=== PATIENT | female | born 1950 | race Caucasian/White ===

== ENCOUNTER 2017-06-02 18:50 | Inpatient (IN) | payer MEDICARE, OTHER, SELFPAY ==
--- NOTE | 2017-06-02 19:00 | NURSING ---
Pt arrived from [facility] via family at [id number]
[2017-06-02 19:25] VITALS: BP 139/79; PULSE 88; RESP 20; TEMP 36.8; O2SAT 98; BMI 25.0
--- NOTE | 2017-06-02 20:52 | PCM.HP.STD ---
Problem List (1) Fever Status: Acute (2) Neutropenia Status: Acute (3) DVT (deep venous thrombosis) Status: Chronic (4) Hypothyroidism Status: Chronic (5) Glioblastoma multiforme Status: Chronic (6) Nausea Status: Chronic (7) Neuropathic pain Status: Chronic (8) GERD (gastroesophageal reflux disease) Status: Chronic (9) Debility Status: Acute (10) Left hemiplegia Status: Chronic History of Present Illness Date of Admission: 06/02/17 Chief Complaint: Here for rehabiliation, strengthening, prior to discharge home with spouse. The patient is a 67 year old Female with below past medical history significant for glioblastoma multiforme status post craniotomy with resection, hospitalized 05/27/2017 at [facility] for fever, neutropenia. Patient had low grade fever, low WBC count, she was initially treated with Levaquin, then presented to [facility] Emergency Department, pancultured, and admitted on IV Zosyn. She was given filgrastim 05/30/2017. She has significant overall weakness, and left hemiparesis which is chronic. All cultures were negative, and her Zosyn was discontinued. Resident understands there are no future options for treatment of GBM, she accepts this, and would like to get stronger to go home and rest. 06/02/2017 Admit to TCU for rehabilitation, strengthening, prior to disposition determination. Past Medical History Past Medical History (Chronic Problems): Chronic Problems DVT (deep venous thrombosis) (Chronic) Left hemiplegia (Chronic) Hypothyroidism (Chronic) Glioblastoma multiforme (Chronic) Nausea (Chronic) Neuropathic pain (Chronic) GERD (gastroesophageal reflux disease) (Chronic) Hypothyroidism associated with surgical procedure (Chronic) Allergies adhesive tape Allergy (Verified 06/02/17 20:37) Hives celecoxib [From Celebrex] Allergy (Verified 08/25/16 19:11) Unknown etodolac [From Lodine] Allergy (Verified 08/25/16 19:12) Unknown vancomycin Allergy (Verified 06/02/17 20:37) Rash Home Medications: Ambulatory Orders Medication Instructions Recorded Multivitamin [Daily Multiple 1 each PO DAILY@0800 11/25/16 Vitamin] Acetaminophen [Tylenol Tablet] 1,000 mg PO Q8H PRN PRN 06/02/17 Dexamethasone 1 mg PO TID 06/02/17 Levetiracetam [Keppra] 1,000 mg PO BID 06/02/17 Levothyroxine [Synthroid] 125 mcg PO DAILY@0600 06/02/17 Surgical History: - - Thyroidectomy 2016 for thyroid cancer, Craniotomy for resection of a glioblastoma multiforme. 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 Lives: Spouse/ Significant Other Smoking Status: Never smoker Tobacco Use: Non-smoker Alcohol: None Drugs: None - *Family History Maternal History Items: DVT VTE Information - Inpt Only VTE Present on Admission: No VTE Mechan Device Prophylaxis: Knee High AB Hose VTE Pharm Prophylaxis ordered?: Yes Patient Problems: Active and Suspected Problems Fever (Acute) Neutropenia (Acute) - Physical Exam General: Alert, Oriented x3, Cooperative HEENT: Atraumatic, PERRLA, EOMI, Normocephalic Neck: Supple, No JVD, Negative Carotid Bruits Lungs: Clear to auscultation, Normal air movement Cardiovascular: Regular rate, No murmurs Abdomen: Bowel Sounds Present, Soft, Non Tender Extremities: No edema, Capillary Refill Less than 3 Seconds Skin: No rashes, No breakdown Musculoskeletal: No Tenderness to Palpation of Joints or Extremities Neurological: Cranial nerves II-XII grossly intact, - - Left hemiparesis. Psych/Mental Status: Normal Affect, Appropriate Vital Signs Temp Pulse Resp BP Pulse Ox 98.2 F 88 20 H 139/79 H 98 06/02/17 19:25 06/02/17 19:25 06/02/17 19:25 06/02/17 19:25 06/02/17 19:25 Oxygen Delivery Method Room Air Weight: 74.531 kg Body Mass Index (BMI) 25.0 Assessment/Plan Active and Suspected Problems Fever (Acute) Neutropenia (Acute) 67 year old female with below past medical history significant for glioblastoma multiforme status post resection, hospitalized for fever, neutropenia, admitted to TCU with debility, here for rehabilitation, strengthening, prior to discharge home with spouse. Debility - PT/OT. Pain - Tylenol 1000MG Q8H PRN mild pain. Bowel - Miralax 17GM daily, Dulcolax 10MG PO daily PRN. Pneumonia vaccination - Administer Prevnar 13 and/or Pneumovax 23 as necessary. DVT prophylaxis - Lovenox 40MG SC daily. GBM - Decadron 1MG TID. Seizure disorder - Keppra 1000MG BID. Hypothyroidism - Levothyroxine 125MCG daily. Nutrition - MVI daily. End of Life - Consider hospice referral when resident/family ready.
--- NOTE | 2017-06-02 21:02 | HP.PCM_ITS ---
Problem List (1) Fever Status: Acute (2) Neutropenia Status: Acute (3) DVT (deep venous thrombosis) Status: Chronic (4) Hypothyroidism Status: Chronic (5) Glioblastoma multiforme Status: Chronic (6) Nausea Status: Chronic (7) Neuropathic pain Status: Chronic (8) GERD (gastroesophageal reflux disease) Status: Chronic (9) Debility Status: Acute (10) Left hemiplegia Status: Chronic History of Present Illness Date of Admission: 06/02/17 Chief Complaint: Here for rehabiliation, strengthening, prior to discharge home with spouse. The patient is a 67 year old Female with below past medical history significant for glioblastoma multiforme status post craniotomy with resection, hospitalized 05/27/2017 at [facility] for fever, neutropenia. Patient had low grade fever, low WBC count, she was initially treated with Levaquin, then presented to [facility] Emergency Department, pancultured, and admitted on IV Zosyn. She was given filgrastim 05/30/2017. She has significant overall weakness, and left hemiparesis which is chronic. All cultures were negative, and her Zosyn was discontinued. Resident understands there are no future options for treatment of GBM, she accepts this, and would like to get stronger to go home and rest. 06/02/2017 Admit to TCU for rehabilitation, strengthening, prior to disposition determination. Past Medical History Past Medical History (Chronic Problems): Chronic Problems DVT (deep venous thrombosis) (Chronic) Left hemiplegia (Chronic) Hypothyroidism (Chronic) Glioblastoma multiforme (Chronic) Nausea (Chronic) Neuropathic pain (Chronic) GERD (gastroesophageal reflux disease) (Chronic) Hypothyroidism associated with surgical procedure (Chronic) Allergies adhesive tape Allergy (Verified 06/02/17 20:37) Hives celecoxib [From Celebrex] Allergy (Verified 08/25/16 19:11) Unknown etodolac [From Lodine] Allergy (Verified 08/25/16 19:12) Unknown vancomycin Allergy (Verified 06/02/17 20:37) Rash Home Medications: Ambulatory Orders Medication Instructions Recorded Multivitamin [Daily Multiple 1 each PO DAILY@0800 11/25/16 Vitamin] Acetaminophen [Tylenol Tablet] 1,000 mg PO Q8H PRN PRN 06/02/17 Dexamethasone 1 mg PO TID 06/02/17 Levetiracetam [Keppra] 1,000 mg PO BID 06/02/17 Levothyroxine [Synthroid] 125 mcg PO DAILY@0600 06/02/17 Surgical History: - - Thyroidectomy 2016 for thyroid cancer, Craniotomy for resection of a glioblastoma multiforme. 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 Lives: Spouse/ Significant Other Smoking Status: Never smoker Tobacco Use: Non-smoker Alcohol: None Drugs: None - *Family History Maternal History Items: DVT VTE Information - Inpt Only VTE Present on Admission: No VTE Mechan Device Prophylaxis: Knee High AB Hose VTE Pharm Prophylaxis ordered?: Yes Patient Problems: Active and Suspected Problems Fever (Acute) Neutropenia (Acute) - Physical Exam General: Alert, Oriented x3, Cooperative HEENT: Atraumatic, PERRLA, EOMI, Normocephalic Neck: Supple, No JVD, Negative Carotid Bruits Lungs: Clear to auscultation, Normal air movement Cardiovascular: Regular rate, No murmurs Abdomen: Bowel Sounds Present, Soft, Non Tender Extremities: No edema, Capillary Refill Less than 3 Seconds Skin: No rashes, No breakdown Musculoskeletal: No Tenderness to Palpation of Joints or Extremities Neurological: Cranial nerves II-XII grossly intact, - - Left hemiparesis. Psych/Mental Status: Normal Affect, Appropriate Vital Signs Temp Pulse Resp BP Pulse Ox 98.2 F 88 20 H 139/79 H 98 06/02/17 19:25 06/02/17 19:25 06/02/17 19:25 06/02/17 19:25 06/02/17 19:25 Oxygen Delivery Method Room Air Weight: 74.531 kg Body Mass Index (BMI) 25.0 Assessment/Plan Active and Suspected Problems Fever (Acute) Neutropenia (Acute) 67 year old female with below past medical history significant for glioblastoma multiforme status post resection, hospitalized for fever, neutropenia, admitted to TCU with debility, here for rehabilitation, strengthening, prior to discharge home with spouse. * Debility - PT/OT. * Pain - Tylenol 1000MG Q8H PRN mild pain. * Bowel - Miralax 17GM daily, Dulcolax 10MG PO daily PRN. * Pneumonia vaccination - Administer Prevnar 13 and/or Pneumovax 23 as necessary. * DVT prophylaxis - Lovenox 40MG SC daily. * GBM - Decadron 1MG TID. * Seizure disorder - Keppra 1000MG BID. * Hypothyroidism - Levothyroxine 125MCG daily. * Nutrition - MVI daily. * End of Life - Consider hospice referral when resident/family ready.
[2017-06-02] MEDS: levETIRAcetam 1,000 MG Tablet 1000 MG PO (21:30)
[2017-06-03] MEDS: Acetaminophen 500 MG Tablet 1000 MG PO (04:29)
[2017-06-03] MEDS: levETIRAcetam 1,000 MG Tablet 1000 MG PO ×2 (04:30→17:11)
[2017-06-03] MEDS: Levothyroxine 125 MCG Tablet PO (04:31)
[2017-06-03 06:06] LABS: Anion Gap 9 (5-15); BUN 28 mg/dL (7-18); BUN/Creat Ratio 39.2 RATIO (10-20); Calcium,Total 8.9 mg/dL (8.5-10.1); Chloride 106 mmol/L (98-107); Creatinine, Serum 0.71 mg/dL (0.55-1.02); EST Glomerular Filtration Rate 86 mL/min (>60); Est Glom Filt Rate - Afr Amer 104 mL/min (>60); Estimated Creatinine Clearance 53.56 ml/min; Glucose 94 mg/dL (74-106); Potassium 3.7 mmol/L (3.5-5.1); Sodium Level 141 mmol/L (136-145)
[2017-06-03 06:10] LABS: Differential Indicated MANUAL DIFF; Hemoglobin 10.1 g/dl (12.0-15.0); Mean Corp Hgb Conc 32.6 g/gl (32-36); Mean Corpuscular Hgb 30.1 pg (27.0-32.0); Mean Corpuscular Volume 92.3 fL (81-99); Mean Platelet Vol. 10.2 fl (6.2-12.0); POSITIVE COUNT YES; POSITIVE DIFFERENTIAL NO; POSITIVE MORPHOLOGY YES; Platelet Count 122 K/mm3 (150-450); RBC Distribution Width CV 20.3 % (11.6-14.6); Red Blood Count 3.36 M/mm3 (4.2-5.4); White Blood Count 6.5 K/mm3 (4.4-11.0)
[2017-06-03 06:39] LABS: Lymphocyte 24 % (19-41); Metamyelocyte 6 % (0-1); Monocyte 15 % (0-10); Myelocyte 1 (0-0); Neutrophil-Band 16 % (0-5); Neutrophil-Segmented 38 % (47-70); Nucleated Red Bld Cells,Manual 1 % (0-5); Total Cells Counted 100 (MANUAL DIFF)
[2017-06-03 06:41] LABS: Absolute Lymphocyte Count 1.56 X10^3/ul (0.83-4.51); Lymphocyte # 1.56 X10^3/ul (4.0); Neutrophil # 3.97 X10^3/uL (2.7-7.7)
[2017-06-03 06:42] LABS: Anisocytosis RARE; Polychromasia RARE
[2017-06-03] MEDS: Enoxaparin 40 MG/0.4 ML Syringe SC (07:25)
[2017-06-03] MEDS: Multivitamins,Therapeutic Tablet 1 TABLET PO (08:11)
[2017-06-03] MEDS: Tuberculin,Purif.prot.deriv. 50 TU/ML Vial 5 ML ID (10:38)
[2017-06-03 13:44] LABS: Pathologist Review Reviewed
[2017-06-03 15:21] VITALS: BP 142/84; PULSE 86; RESP 18; TEMP 36.4; O2SAT 97
[2017-06-03 22:00] VITALS: PULSE 74; RESP 16; O2SAT 96
[2017-06-04] MEDS: levETIRAcetam 1,000 MG Tablet 1000 MG PO ×2 (05:49→16:59)
[2017-06-04] MEDS: Enoxaparin 40 MG/0.4 ML Syringe SC (05:50)
[2017-06-04] MEDS: Levothyroxine 125 MCG Tablet PO (05:50)
[2017-06-04] MEDS: Multivitamins,Therapeutic Tablet 1 TABLET PO (07:48)
[2017-06-04 09:50] VITALS: PULSE 88; RESP 18; O2SAT 96
[2017-06-04] MEDS: Acetaminophen 500 MG Tablet 1000 MG PO (13:27)
[2017-06-04 15:26] VITALS: BP 124/74; PULSE 101; RESP 18; TEMP 36.1; O2SAT 96
[2017-06-05] MEDS: Acetaminophen 500 MG Tablet 1000 MG PO (02:37)
[2017-06-05] MEDS: Enoxaparin 40 MG/0.4 ML Syringe SC (06:16)
[2017-06-05] MEDS: Levothyroxine 125 MCG Tablet PO (06:16)
[2017-06-05] MEDS: levETIRAcetam 1,000 MG Tablet 1000 MG PO ×2 (06:17→17:12)
[2017-06-05] MEDS: Multivitamins,Therapeutic Tablet 1 TABLET PO (07:31)
[2017-06-05 09:18] VITALS: PULSE 80; RESP 18; O2SAT 98
--- NOTE | 2017-06-05 15:41 | PCA ---
Patient/Patients family asked to play cards in the lobby, i went into room to get patient to walk out in the dining room and patient along with family refused to use a device (walker/yonatan-walker) for walking assistance BERRY vincent notified
[2017-06-06] MEDS: Levothyroxine 125 MCG Tablet PO (05:52)
[2017-06-06] MEDS: Enoxaparin 40 MG/0.4 ML Syringe SC (05:53)
[2017-06-06] MEDS: levETIRAcetam 1,000 MG Tablet 1000 MG PO ×2 (05:54→17:39)
[2017-06-06] MEDS: Multivitamins,Therapeutic Tablet 1 TABLET PO (07:39)
[2017-06-06 09:30] VITALS: PULSE 90; RESP 16; O2SAT 96
--- NOTE | 2017-06-06 14:59 | PCM.PN.RX ---
<Kj Mendezip D - Last Filed: 06/06/17 14:59> Progress Note - Pharmacy Subjective: TCU Admission Objective: Allergies adhesive tape Allergy (Verified 06/02/17 20:37) Hives celecoxib [From Celebrex] Allergy (Verified 08/25/16 19:11) Unknown etodolac [From Lodine] Allergy (Verified 08/25/16 19:12) Unknown vancomycin Allergy (Verified 06/02/17 20:37) Rash Home Medications Medication Instructions Recorded Multivitamin [Daily Multiple 1 each PO DAILY@0800 11/25/16 Vitamin] Acetaminophen [Tylenol Tablet] 1,000 mg PO Q8H PRN PRN 06/02/17 Dexamethasone 1 mg PO TID 06/02/17 Levetiracetam [Keppra] 1,000 mg PO BID 06/02/17 Levothyroxine [Synthroid] 125 mcg PO DAILY@0600 06/02/17 Current Medications Generic Name Dose Route Start Last Admin Trade Name Freq PRN Reason Stop Dose Admin Acetaminophen 1,000 mg 06/02/17 21:03 06/05/17 02:37 Tylenol PO 1,000 mg Q8H PRN PRN Administration MILD PAIN (1-3/10) Bisacodyl 10 mg 06/02/17 21:03 Dulcolax PO DAILY PRN Constipation Dexamethasone 1 mg 06/03/17 07:45 06/06/17 11:52 Decadron PO 06/16/17 22:01 1 mg TIDCM ISABEL Administration Enoxaparin Sodium 40 mg 06/03/17 06:00 06/06/17 05:53 Lovenox SC 40 mg DAILY@0600 ON LICENSE OF [facility] Administration Levetiracetam 1,000 mg 06/02/17 22:00 06/06/17 05:54 Keppra PO 1,000 mg BID ON LICENSE OF [facility] Administration Levothyroxine Sodium 125 mcg 06/03/17 06:00 06/06/17 05:52 Synthroid PO 125 mcg DAILY@0600 ON LICENSE OF [facility] Administration Multivitamins 1 tablet 06/03/17 08:00 06/06/17 07:39 Multivitamin PO 1 tablet DAILY@0800 ON LICENSE OF [facility] Administration Polyethylene Glycol 17 gm 06/03/17 06:00 06/06/17 05:54 Miralax PO Not Given DAILY ON LICENSE OF [facility] Tuberculin PPD 5 tu 06/10/17 10:00 Tubersol, Aplisol, Ppd ID 06/10/17 10:01 X1 ONE Problem List Fever (Acute) Neutropenia (Acute) DVT (deep venous thrombosis) (Chronic) Left hemiplegia (Chronic) Vital Signs Temp Pulse Resp BP Pulse Ox 96.9 F L 90 16 124/74 H 96 06/04/17 15:26 06/06/17 09:30 06/06/17 09:30 06/04/17 15:26 06/06/17 09:30 Oxygen Delivery Method Room Air Weight: 74.531 kg Body Mass Index (BMI) 25.0 Sodium 141 mmol/L (136-145) 06/03/17 05:00 Potassium 3.7 mmol/L (3.5-5.1) 06/03/17 05:00 Chloride 106 mmol/L (98-107) 06/03/17 05:00 Carbon Dioxide 26.0 mmol/L (21.0-32.0) 06/03/17 05:00 Anion Gap 9 (5-15) 06/03/17 05:00 BUN 28 mg/dL (7-18) H 06/03/17 05:00 Creatinine 0.71 mg/dL (0.55-1.02) 06/03/17 05:00 Est GFR (MDRD) Af Amer 104 mL/min (>60) 06/03/17 05:00 Est GFR (MDRD) Non-Af 86 mL/min (>60) 06/03/17 05:00 BUN/Creatinine Ratio 39.2 RATIO (10-20) H 06/03/17 05:00 Glucose 94 mg/dL (74-106) 06/03/17 05:00 Assessment/Plan: 1) Pain APAP for mild pain. Continue to monitor prn medication use, daily pain scores. 2) GBM Dexamethasone 3x daily. Continue to monitor clinically. 3) Seizure Levetiracetam twice daily. Continue to monitor for seizures. 4) Hypothyroidism Levothyroxine daily. Continue to monitor s/s hyper/hypothyroidism. 5) Nutrition Multivitamin daily. Continue to monitor clinically. 6) DVT PPx Enoxaparin daily. Continue to monitor s/s bleeding/clot. Psychotropic Medications: None Unnecessary Medications: None Bowel Regimen: 7) PEG daily, prn bisacodyl. Continue to monitor prn medication use, for constipation/diarrhea. Date of Note:: 06/06/17 - Provider Comments Provider responsibility: Provider responsible to enter orders to implement recommendations <Triston Ramírez Chi - Last Filed: 06/06/17 16:33> Progress Note - Pharmacy Subjective: [] Objective: Allergies adhesive tape Allergy (Verified 06/02/17 20:37) Hives celecoxib [From Celebrex] Allergy (Verified 08/25/16 19:11) Unknown etodolac [From Lodine] Allergy (Verified 08/25/16 19:12) Unknown vancomycin Allergy (Verified 06/02/17 20:37) Rash Home Medications Medication Instructions Recorded Multivitamin [Daily Multiple 1 each PO DAILY@0800 11/25/16 Vitamin] Acetaminophen [Tylenol Tablet] 1,000 mg PO Q8H PRN PRN 06/02/17 Dexamethasone 1 mg PO TID 06/02/17 Levetiracetam [Keppra] 1,000 mg PO BID 06/02/17 Levothyroxine [Synthroid] 125 mcg PO DAILY@0600 06/02/17 Current Medications Generic Name Dose Route Start Last Admin Trade Name Freq PRN Reason Stop Dose Admin Acetaminophen 1,000 mg 06/02/17 21:03 06/05/17 02:37 Tylenol PO 1,000 mg Q8H PRN PRN Administration MILD PAIN (1-3/10) Bisacodyl 10 mg 06/02/17 21:03 Dulcolax PO DAILY PRN Constipation Dexamethasone 1 mg 06/03/17 07:45 06/06/17 11:52 Decadron PO 06/16/17 22:01 1 mg TIDCM ISABEL Administration Enoxaparin Sodium 40 mg 06/03/17 06:00 06/06/17 05:53 Lovenox SC 40 mg DAILY@0600 ISABEL Administration Levetiracetam 1,000 mg 06/02/17 22:00 06/06/17 05:54 Keppra PO 1,000 mg BID ISABEL Administration Levothyroxine Sodium 125 mcg 06/03/17 06:00 06/06/17 05:52 Synthroid PO 125 mcg DAILY@0600 ISABEL Administration Multivitamins 1 tablet 06/03/17 08:00 06/06/17 07:39 Multivitamin PO 1 tablet DAILY@0800 ISABEL Administration Polyethylene Glycol 17 gm 06/03/17 06:00 06/06/17 05:54 Miralax PO Not Given DAILY ISABEL Tuberculin PPD 5 tu 06/10/17 10:00 Tubersol, Aplisol, Ppd ID 06/10/17 10:01 X1 ONE Problem List Fever (Acute) Neutropenia (Acute) DVT (deep venous thrombosis) (Chronic) Left hemiplegia (Chronic) Vital Signs Temp Pulse Resp BP Pulse Ox 96.9 F L 90 16 124/74 H 96 06/04/17 15:26 06/06/17 09:30 06/06/17 09:30 06/04/17 15:26 06/06/17 09:30 Oxygen Delivery Method Room Air Weight: 74.531 kg Body Mass Index (BMI) 25.0 Sodium 141 mmol/L (136-145) 06/03/17 05:00 Potassium 3.7 mmol/L (3.5-5.1) 06/03/17 05:00 Chloride 106 mmol/L (98-107) 06/03/17 05:00 Carbon Dioxide 26.0 mmol/L (21.0-32.0) 06/03/17 05:00 Anion Gap 9 (5-15) 06/03/17 05:00 BUN 28 mg/dL (7-18) H 06/03/17 05:00 Creatinine 0.71 mg/dL (0.55-1.02) 06/03/17 05:00 Est GFR (MDRD) Af Amer 104 mL/min (>60) 06/03/17 05:00 Est GFR (MDRD) Non-Af 86 mL/min (>60) 06/03/17 05:00 BUN/Creatinine Ratio 39.2 RATIO (10-20) H 06/03/17 05:00 Glucose 94 mg/dL (74-106) 06/03/17 05:00 Assessment/Plan: Psychotropic Medications: Unnecessary Medications: Bowel Regimen: - Provider Comments Provider responsibility: Provider responsible to enter orders to implement recommendations Provider Comments to Recommendations by Pharmacy: Agree
--- NOTE | 2017-06-06 15:03 | PHA.CONS_ITS ---
<Kj Mendezip D - Last Filed: 06/06/17 14:59> Progress Note - Pharmacy Subjective: TCU Admission Objective: Allergies adhesive tape Allergy (Verified 06/02/17 20:37) Hives celecoxib [From Celebrex] Allergy (Verified 08/25/16 19:11) Unknown etodolac [From Lodine] Allergy (Verified 08/25/16 19:12) Unknown vancomycin Allergy (Verified 06/02/17 20:37) Rash Home Medications Medication Instructions Recorded Multivitamin [Daily Multiple 1 each PO DAILY@0800 11/25/16 Vitamin] Acetaminophen [Tylenol Tablet] 1,000 mg PO Q8H PRN PRN 06/02/17 Dexamethasone 1 mg PO TID 06/02/17 Levetiracetam [Keppra] 1,000 mg PO BID 06/02/17 Levothyroxine [Synthroid] 125 mcg PO DAILY@0600 06/02/17 Current Medications Generic Name Dose Route Start Last Admin Trade Name Freq PRN Reason Stop Dose Admin Acetaminophen 1,000 mg 06/02/17 21:03 06/05/17 02:37 Tylenol PO 1,000 mg Q8H PRN PRN Administration MILD PAIN (1-3/10) Bisacodyl 10 mg 06/02/17 21:03 Dulcolax PO DAILY PRN Constipation Dexamethasone 1 mg 06/03/17 07:45 06/06/17 11:52 Decadron PO 06/16/17 22:01 1 mg TIDCM ISABEL Administration Enoxaparin Sodium 40 mg 06/03/17 06:00 06/06/17 05:53 Lovenox SC 40 mg DAILY@0600 [facility] Administration Levetiracetam 1,000 mg 06/02/17 22:00 06/06/17 05:54 Keppra PO 1,000 mg BID [facility] Administration Levothyroxine Sodium 125 mcg 06/03/17 06:00 06/06/17 05:52 Synthroid PO 125 mcg DAILY@0600 [facility] Administration Multivitamins 1 tablet 06/03/17 08:00 06/06/17 07:39 Multivitamin PO 1 tablet DAILY@0800 [facility] Administration Polyethylene Glycol 17 gm 06/03/17 06:00 06/06/17 05:54 Miralax PO Not Given DAILY [facility] Tuberculin PPD 5 tu 06/10/17 10:00 Tubersol, Aplisol, Ppd ID 06/10/17 10:01 X1 ONE Problem List Fever (Acute) Neutropenia (Acute) DVT (deep venous thrombosis) (Chronic) Left hemiplegia (Chronic) Vital Signs Temp Pulse Resp BP Pulse Ox 96.9 F L 90 16 124/74 H 96 06/04/17 15:26 06/06/17 09:30 06/06/17 09:30 06/04/17 15:26 06/06/17 09:30 Oxygen Delivery Method Room Air Weight: 74.531 kg Body Mass Index (BMI) 25.0 Sodium 141 mmol/L (136-145) 06/03/17 05:00 Potassium 3.7 mmol/L (3.5-5.1) 06/03/17 05:00 Chloride 106 mmol/L (98-107) 06/03/17 05:00 Carbon Dioxide 26.0 mmol/L (21.0-32.0) 06/03/17 05:00 Anion Gap 9 (5-15) 06/03/17 05:00 BUN 28 mg/dL (7-18) H 06/03/17 05:00 Creatinine 0.71 mg/dL (0.55-1.02) 06/03/17 05:00 Est GFR (MDRD) Af Amer 104 mL/min (>60) 06/03/17 05:00 Est GFR (MDRD) Non-Af 86 mL/min (>60) 06/03/17 05:00 BUN/Creatinine Ratio 39.2 RATIO (10-20) H 06/03/17 05:00 Glucose 94 mg/dL (74-106) 06/03/17 05:00 Assessment/Plan: 1) Pain APAP for mild pain. Continue to monitor prn medication use, daily pain scores. 2) GBM Dexamethasone 3x daily. Continue to monitor clinically. 3) Seizure Levetiracetam twice daily. Continue to monitor for seizures. 4) Hypothyroidism Levothyroxine daily. Continue to monitor s/s hyper/hypothyroidism. 5) Nutrition Multivitamin daily. Continue to monitor clinically. 6) DVT PPx Enoxaparin daily. Continue to monitor s/s bleeding/clot. Psychotropic Medications: None Unnecessary Medications: None Bowel Regimen: 7) PEG daily, prn bisacodyl. Continue to monitor prn medication use, for constipation/diarrhea. Date of Note:: 06/06/17 - Provider Comments Provider responsibility: Provider responsible to enter orders to implement recommendations <Triston Ramírez Chi - Last Filed: 06/06/17 16:33> Progress Note - Pharmacy Subjective: [] Objective: Allergies adhesive tape Allergy (Verified 06/02/17 20:37) Hives celecoxib [From Celebrex] Allergy (Verified 08/25/16 19:11) Unknown etodolac [From Lodine] Allergy (Verified 08/25/16 19:12) Unknown vancomycin Allergy (Verified 06/02/17 20:37) Rash Home Medications Medication Instructions Recorded Multivitamin [Daily Multiple 1 each PO DAILY@0800 11/25/16 Vitamin] Acetaminophen [Tylenol Tablet] 1,000 mg PO Q8H PRN PRN 06/02/17 Dexamethasone 1 mg PO TID 06/02/17 Levetiracetam [Keppra] 1,000 mg PO BID 06/02/17 Levothyroxine [Synthroid] 125 mcg PO DAILY@0600 06/02/17 Current Medications Generic Name Dose Route Start Last Admin Trade Name Freq PRN Reason Stop Dose Admin Acetaminophen 1,000 mg 06/02/17 21:03 06/05/17 02:37 Tylenol PO 1,000 mg Q8H PRN PRN Administration MILD PAIN (1-3/10) Bisacodyl 10 mg 06/02/17 21:03 Dulcolax PO DAILY PRN Constipation Dexamethasone 1 mg 06/03/17 07:45 06/06/17 11:52 Decadron PO 06/16/17 22:01 1 mg TIDCM ISABEL Administration Enoxaparin Sodium 40 mg 06/03/17 06:00 06/06/17 05:53 Lovenox SC 40 mg DAILY@0600 ISABEL Administration Levetiracetam 1,000 mg 06/02/17 22:00 06/06/17 05:54 Keppra PO 1,000 mg BID ISABEL Administration Levothyroxine Sodium 125 mcg 06/03/17 06:00 06/06/17 05:52 Synthroid PO 125 mcg DAILY@0600 ISABEL Administration Multivitamins 1 tablet 06/03/17 08:00 06/06/17 07:39 Multivitamin PO 1 tablet DAILY@0800 ISABEL Administration Polyethylene Glycol 17 gm 06/03/17 06:00 06/06/17 05:54 Miralax PO Not Given DAILY ISABEL Tuberculin PPD 5 tu 06/10/17 10:00 Tubersol, Aplisol, Ppd ID 06/10/17 10:01 X1 ONE Problem List Fever (Acute) Neutropenia (Acute) DVT (deep venous thrombosis) (Chronic) Left hemiplegia (Chronic) Vital Signs Temp Pulse Resp BP Pulse Ox 96.9 F L 90 16 124/74 H 96 06/04/17 15:26 06/06/17 09:30 06/06/17 09:30 06/04/17 15:26 06/06/17 09:30 Oxygen Delivery Method Room Air Weight: 74.531 kg Body Mass Index (BMI) 25.0 Sodium 141 mmol/L (136-145) 06/03/17 05:00 Potassium 3.7 mmol/L (3.5-5.1) 06/03/17 05:00 Chloride 106 mmol/L (98-107) 06/03/17 05:00 Carbon Dioxide 26.0 mmol/L (21.0-32.0) 06/03/17 05:00 Anion Gap 9 (5-15) 06/03/17 05:00 BUN 28 mg/dL (7-18) H 06/03/17 05:00 Creatinine 0.71 mg/dL (0.55-1.02) 06/03/17 05:00 Est GFR (MDRD) Af Amer 104 mL/min (>60) 06/03/17 05:00 Est GFR (MDRD) Non-Af 86 mL/min (>60) 06/03/17 05:00 BUN/Creatinine Ratio 39.2 RATIO (10-20) H 06/03/17 05:00 Glucose 94 mg/dL (74-106) 06/03/17 05:00 Assessment/Plan: Psychotropic Medications: Unnecessary Medications: Bowel Regimen: - Provider Comments Provider responsibility: Provider responsible to enter orders to implement recommendations Provider Comments to Recommendations by Pharmacy: Agree
[2017-06-07] MEDS: levETIRAcetam 1,000 MG Tablet 1000 MG PO ×2 (04:12→16:50)
[2017-06-07] MEDS: Levothyroxine 125 MCG Tablet PO (04:12)
[2017-06-07] MEDS: Enoxaparin 40 MG/0.4 ML Syringe SC (05:20)
[2017-06-07] MEDS: Acetaminophen 500 MG Tablet 1000 MG PO ×2 (05:54→19:51)
[2017-06-07 06:00] VITALS: RESP 18; O2SAT 95
[2017-06-07] MEDS: Multivitamins,Therapeutic Tablet 1 TABLET PO (07:45)
--- NOTE | 2017-06-07 14:57 | CASEMGMT ---
Brief interview for mental status (BIMS) and resident mood interview (PHQ-9) completed on this day. BIMS score 15. PHQ-9 score 08/05
[2017-06-07 15:30] VITALS: BP 111/67; PULSE 87; RESP 16; TEMP 36.5; O2SAT 95
[2017-06-08] MEDS: levETIRAcetam 1,000 MG Tablet 1000 MG PO ×2 (06:02→16:07)
[2017-06-08] MEDS: Levothyroxine 125 MCG Tablet PO (06:02)
[2017-06-08] MEDS: Enoxaparin 40 MG/0.4 ML Syringe SC (06:02)
[2017-06-08] MEDS: Multivitamins,Therapeutic Tablet 1 TABLET PO (09:15)
[2017-06-08 10:00] VITALS: PULSE 88; RESP 18; O2SAT 94
--- NOTE | 2017-06-08 10:30 | CASEMGMT ---
Plan of care meeting held. Resident present as well as resident spouse. No discharge date set at this time. Resident to continue with further care and treatment on the Transitional Care Unit. Resident plans to discharge home with spouse at time of discharge. Support given. Will continue to follow. Katie MADRIGAL, ASSOCIATE OF SCIENCE IN NURSING
--- NOTE | 2017-06-08 14:24 | NURSING ---
Therapy requesting sling for left arm. Order entered. Dr Ramírez aware.
[2017-06-08 15:32] VITALS: BP 130/74; PULSE 90; RESP 18; TEMP 36.8; O2SAT 95
--- NOTE | 2017-06-08 18:23 | NURSING ---
Addendum entered by Honey Miller 06/08/17 19:34: Pt and family aware of WBC 5.7. Original Note: RN notified of concerns during careplan meeting. Family requesting CBC to assess WBC. Dr Ramírez aware. N.O. entered.
[2017-06-08 19:23] LABS: Hematocrit 35.6 % (37-47); Hemoglobin 11.4 g/dl (12.0-15.0); Mean Corpuscular Hgb 30.3 pg (27.0-32.0); Mean Corpuscular Volume 94.7 fL (81-99); Mean Platelet Vol. 9.5 fl (6.2-12.0); Platelet Count 204 K/mm3 (150-450); RBC Distribution Width CV 23.4 % (11.6-14.6); RBC Distribution Width SD 78.8 fl (35.1-43.9); Red Blood Count 3.76 M/mm3 (4.2-5.4); White Blood Count 5.7 K/mm3 (4.4-11.0)
[2017-06-08 19:24] LABS: Differential Indicated MANUAL DIFF; POSITIVE COUNT YES; POSITIVE DIFFERENTIAL YES; POSITIVE MORPHOLOGY YES
[2017-06-08 20:40] LABS: Lymphocyte 16 % (19-41); Monocyte 1 % (0-10); Neutrophil-Band 5 % (0-5); Neutrophil-Segmented 78 % (47-70); Total Cells Counted 100 (MANUAL DIFF)
[2017-06-08 20:41] LABS: Anisocytosis 1+; Platelet Estimate ADEQUATE (ADEQ); Red Cell Morphology N CHROM NORMAL (NORM C&C)
[2017-06-09] LABS: Absolute Lymphocyte Count 0.91 X10^3/ul (0.83-4.51); Absolute Neutrophil Count 4.7 X10^3/uL (2.0-7.7)
[2017-06-09] MEDS: levETIRAcetam 1,000 MG Tablet 1000 MG PO ×2 (05:34→16:59)
[2017-06-09] MEDS: Enoxaparin 40 MG/0.4 ML Syringe SC (05:34)
[2017-06-09] MEDS: Levothyroxine 125 MCG Tablet PO (05:35)
[2017-06-09] MEDS: Multivitamins,Therapeutic Tablet 1 TABLET PO (07:43)
[2017-06-09 10:00] VITALS: PULSE 86; RESP 18; O2SAT 96
[2017-06-09 13:48] LABS: Pathologist Review Reviewed
[2017-06-09 16:45] VITALS: BP 139/76; PULSE 67; RESP 18; TEMP 36.4; O2SAT 97
[2017-06-10 06:35] LABS: Hematocrit 31.4 % (37-47); Hemoglobin 10.6 g/dl (12.0-15.0); Mean Corp Hgb Conc 33.8 g/gl (32-36); Mean Corpuscular Volume 94.9 fL (81-99); Mean Platelet Vol. 10.1 fl (6.2-12.0); Platelet Count 210 K/mm3 (150-450); RBC Distribution Width SD 76.9 fl (35.1-43.9); Red Blood Count 3.31 M/mm3 (4.2-5.4); White Blood Count 4.2 K/mm3 (4.4-11.0)
[2017-06-10 06:38] LABS: Anion Gap 8 (5-15); BUN 26 mg/dL (7-18); BUN/Creat Ratio 41.2 RATIO (10-20); Calcium,Total 8.9 mg/dL (8.5-10.1); Chloride 106 mmol/L (98-107); Creatinine, Serum 0.63 mg/dL (0.55-1.02); Differential Indicated MANUAL DIFF; EST Glomerular Filtration Rate 99 mL/min (>60); Est Glom Filt Rate - Afr Amer 120 mL/min (>60); Estimated Creatinine Clearance 53.56 ml/min; Glucose 94 mg/dL (74-106); POSITIVE COUNT YES; POSITIVE DIFFERENTIAL NO; POSITIVE MORPHOLOGY YES; Sodium Level 141 mmol/L (136-145)
[2017-06-10 07:06] LABS: Lymphocyte 21 % (19-41); Metamyelocyte 3 % (0-1); Monocyte 8 % (0-10); Neutrophil-Segmented 68 % (47-70); Total Cells Counted 100 (MANUAL DIFF)
[2017-06-10 07:07] LABS: Platelet Estimate ADEQUATE (ADEQ); Red Cell Morphology NORM C+C NORMAL (NORM C&C)
[2017-06-10 07:08] LABS: Absolute Lymphocyte Count 0.88 X10^3/ul (0.83-4.51); Absolute Neutrophil Count 2.9 X10^3/uL (2.0-7.7)
[2017-06-10] MEDS: levETIRAcetam 1,000 MG Tablet 1000 MG PO ×2 (07:13→17:42)
[2017-06-10] MEDS: Levothyroxine 125 MCG Tablet PO (07:14)
[2017-06-10] MEDS: Enoxaparin 40 MG/0.4 ML Syringe SC (07:15)
[2017-06-10] MEDS: Multivitamins,Therapeutic Tablet 1 TABLET PO (07:59)
[2017-06-10 10:00] VITALS: PULSE 86; RESP 16; O2SAT 94
[2017-06-10 12:38] LABS: Pathologist Review Reviewed
[2017-06-10 16:00] VITALS: BP 126/75; PULSE 81; RESP 17; TEMP 35.9; O2SAT 95
[2017-06-11] MEDS: levETIRAcetam 1,000 MG Tablet 1000 MG PO ×2 (06:49→17:48)
[2017-06-11] MEDS: Levothyroxine 125 MCG Tablet PO (06:49)
[2017-06-11] MEDS: Enoxaparin 40 MG/0.4 ML Syringe SC (06:49)
[2017-06-11] MEDS: Multivitamins,Therapeutic Tablet 1 TABLET PO (07:57)
[2017-06-11 15:15] VITALS: BP 106/55; PULSE 82; RESP 18; TEMP 37; O2SAT 94
[2017-06-12] MEDS: levETIRAcetam 1,000 MG Tablet 1000 MG PO ×2 (05:31→17:11)
[2017-06-12] MEDS: Enoxaparin 40 MG/0.4 ML Syringe SC (05:32)
[2017-06-12] MEDS: Levothyroxine 125 MCG Tablet PO (05:32)
[2017-06-12] MEDS: Multivitamins,Therapeutic Tablet 1 TABLET PO (07:52)
[2017-06-12 15:26] VITALS: BP 121/68; PULSE 80; RESP 16; TEMP 36.3; O2SAT 97
[2017-06-12 21:11] VITALS: PULSE 78; RESP 18; O2SAT 95
[2017-06-13 05:00] VITALS: BP 155/98; PULSE 91; RESP 20; O2SAT 99
--- NOTE | 2017-06-13 05:00 | NURSING ---
Addendum entered by Lindsey Pinto 06/13/17 05:30: returned call and updated on pt. Original Note: Addendum entered by Lindsey Pinto 06/13/17 05:17: Called pts , Chriss and left a voicemail. Original Note: Pt was found laying on floor between recliner and bed. Pt stated she was trying to transfer from her recliner to her bed. Pt did not use call light, but moved it from her recliner to her table. Pt A&O X3, vitals were 155/98, HR 91, 99% on room air, resp 20. Pt denies any pain at this time and states she landed on her bottom and did not hit or land on any other body part. Dr. Ramírez aware. Will update family.
[2017-06-13] MEDS: Levothyroxine 125 MCG Tablet PO (05:02)
[2017-06-13] MEDS: Enoxaparin 40 MG/0.4 ML Syringe SC (05:03)
[2017-06-13] MEDS: levETIRAcetam 1,000 MG Tablet 1000 MG PO ×2 (05:03→17:05)
--- NOTE | 2017-06-13 07:24 | NURSING ---
Pt was observed sitting upright on bottom, in room between recliner chair and bed at approx 0500. Told staff she was trying to self transfer from chair into bed. Stated she moved the call light from chair to table, where it was lying, and reached for bed remote on opposite side of bed, overstretching herself and losing balance. Insisted she gently slid down onto floor, landing on bottom, denied any pain or discomfort. ROM normal for pt, no redness/injury noted. RNs on duty aware, all appropriate contacts notified. Pt educated on importance of calling for staff and allowing assistance, to which she voiced understanding. PA and floor mats now present with pt/in room. Pt A&O x 3, usual pleasant self, and very apologetic to staff. Vital signs obtained were WNL for pt. Pt stated she will use call light prior to transfers and will allow staff assistance. Continuing to monitor.
[2017-06-13] MEDS: Multivitamins,Therapeutic Tablet 1 TABLET PO (08:19)
--- NOTE | 2017-06-13 14:06 | MDS.RN ---
Information for the mds was obtained from review of the clinical record, interview of resident, staff, and direct observation of resident's care.
[2017-06-13 15:14] VITALS: BP 114/80; PULSE 78; RESP 18; TEMP 36.3; O2SAT 96
[2017-06-14] MEDS: Levothyroxine 125 MCG Tablet PO (06:05)
[2017-06-14] MEDS: levETIRAcetam 1,000 MG Tablet 1000 MG PO ×2 (06:05→16:59)
[2017-06-14] MEDS: Enoxaparin 40 MG/0.4 ML Syringe SC (06:06)
[2017-06-14] MEDS: Multivitamins,Therapeutic Tablet 1 TABLET PO (07:50)
[2017-06-14 10:00] VITALS: PULSE 91; RESP 18; O2SAT 97
[2017-06-14 15:21] VITALS: BP 109/76; PULSE 80; RESP 18; TEMP 36.6; O2SAT 96
--- NOTE | 2017-06-14 15:56 | CASEMGMT ---
Brief interview for mental status (BIMS) and resident mood interview (PHQ-9) completed on this day. BIMS score 1515. PHQ-9 score 07/05
[2017-06-14] MEDS: Menthol/Lanolin/Calamine/Znox 113 GM Tube 1 APPLIC TOPICAL (19:38)
[2017-06-15] MEDS: Acetaminophen 500 MG Tablet 1000 MG PO (03:05)
[2017-06-15] MEDS: Menthol/Lanolin/Calamine/Znox 113 GM Tube 1 APPLIC TOPICAL ×2 (05:54→20:02)
[2017-06-15] MEDS: Multivitamins,Therapeutic Tablet 1 TABLET PO (05:55)
[2017-06-15] MEDS: Enoxaparin 40 MG/0.4 ML Syringe SC (05:55)
[2017-06-15] MEDS: Levothyroxine 125 MCG Tablet PO (05:55)
[2017-06-15 06:00] VITALS: RESP 16
[2017-06-15] MEDS: levETIRAcetam 1,000 MG Tablet 1000 MG PO ×2 (06:04→18:26)
--- NOTE | 2017-06-15 06:15 | NURSING ---
PATIENT WAS GIVEN EARLY BATH AND ALL 0600 AND 0800 MEDS GIVEN LEFT WITH FOR DR NOLAN IN [place]. DENIED ANY NEED FOR PAIN RX DID TAKE ONE DOSE DURING THE NIGHT WITH EFFECT.
[2017-06-15 10:00] VITALS: PULSE 95; RESP 18; O2SAT 95
--- NOTE | 2017-06-15 12:32 | NURSING ---
PT HAD APPT TODAY IN [facility] EARLY AM AND STAFF CALLED TO REPORT THAT PT GIVEN DEXAMETHSONE 12MG TODAY AND WOULD LIKE HER SCHEDULED DOSE TO BE INCREASED TO 4MG BID.
[2017-06-15 20:08] VITALS: BP 133/80; PULSE 88; RESP 20; TEMP 36.7; O2SAT 97
[2017-06-16] MEDS: levETIRAcetam 1,000 MG Tablet 1000 MG PO ×2 (06:37→16:56)
[2017-06-16] MEDS: Levothyroxine 125 MCG Tablet PO (06:37)
[2017-06-16] MEDS: Enoxaparin 40 MG/0.4 ML Syringe SC (06:37)
[2017-06-16] MEDS: Menthol/Lanolin/Calamine/Znox 113 GM Tube 1 APPLIC TOPICAL ×2 (06:40→20:10)
[2017-06-16] MEDS: Multivitamins,Therapeutic Tablet 1 TABLET PO (08:13)
[2017-06-16 09:57] VITALS: PULSE 96; RESP 16; O2SAT 96
[2017-06-16 15:57] VITALS: BP 116/57; PULSE 76; RESP 18; TEMP 36.2; O2SAT 90
--- NOTE | 2017-06-16 18:11 | NURSING ---
This nurse noticed Pt having a lot of difficulty walking, Pt having more trouble lifting and using right foot, Pt leaning and barley holding self up, maximum assistance was needed by SHOT COAT TENDER. Pt wheeled from bathroom, because SHOT COAT TENDER thought she was unsafe to walk. Robyn SMART updated
--- NOTE | 2017-06-16 18:54 | NURSING ---
1700-smutter having trouble with getting pt to br d/t balance trouble. pt with no new neuro deficit upon assessment. denies any dizziness when up. pt having trouble even with good leg though not obs at this time per this rn. denies any pain or other needs. will monitor
[2017-06-16 20:15] VITALS: TEMP 36.8
[2017-06-17] MEDS: Enoxaparin 40 MG/0.4 ML Syringe SC (05:12)
[2017-06-17] MEDS: Levothyroxine 125 MCG Tablet PO (05:12)
[2017-06-17] MEDS: levETIRAcetam 1,000 MG Tablet 1000 MG PO ×2 (05:12→17:03)
[2017-06-17] MEDS: Menthol/Lanolin/Calamine/Znox 113 GM Tube 1 APPLIC TOPICAL ×2 (05:14→19:35)
[2017-06-17 06:11] LABS: Absolute Lymphocyte Count 0.71 X10^3/ul (0.83-4.51); Absolute Neutrophil Count 3.8 X10^3/uL (2.0-7.7); Basophil# 0.01 X10^3/uL; Basophil% 0.2 % (0-1); Differential Indicated SCAN CRITERIA MET; Hematocrit 34.4 % (37-47); Hemoglobin 11.2 g/dl (12.0-15.0); Lymphocyte # 0.71 X10^3/ul (4.0); Mean Corp Hgb Conc 32.6 g/gl (32-36); Mean Corpuscular Hgb 31.8 pg (27.0-32.0); Mean Corpuscular Volume 97.7 fL (81-99); Mean Platelet Vol. 9.9 fl (6.2-12.0); Monocyte# 0.58 X10^3/uL; Monocyte% 11.4 % (0-10); Neutrophil # 3.76 X10^3/uL (2.7-7.7); POSITIVE COUNT NO; POSITIVE DIFFERENTIAL NO; POSITIVE MORPHOLOGY YES; Platelet Count 253 K/mm3 (150-450); RBC Distribution Width CV 23.1 % (11.6-14.6); Red Blood Count 3.52 M/mm3 (4.2-5.4); White Blood Count 5.1 K/mm3 (4.4-11.0)
[2017-06-17 06:13] LABS: Anion Gap 8 (5-15); BUN 27 mg/dL (7-18); BUN/Creat Ratio 38.5 RATIO (10-20); Calcium,Total 9.1 mg/dL (8.5-10.1); Chloride 107 mmol/L (98-107); EST Glomerular Filtration Rate 88 mL/min (>60); Est Glom Filt Rate - Afr Amer 107 mL/min (>60); Estimated Creatinine Clearance 53.56 ml/min; Glucose 110 mg/dL (74-106); Potassium 4.4 mmol/L (3.5-5.1); Sodium Level 144 mmol/L (136-145)
[2017-06-17 06:40] LABS: Anisocytosis 2+; Differential Comment SCANNED
[2017-06-17] MEDS: Multivitamins,Therapeutic Tablet 1 TABLET PO (07:48)
--- NOTE | 2017-06-17 15:15 | NURSING ---
Dr. Ramírez reviewed labs, NNO, print out given to pt to give to per request
[2017-06-17 15:23] VITALS: BP 108/65; PULSE 78; RESP 18; TEMP 36.5; O2SAT 96
[2017-06-17 19:47] VITALS: PULSE 82; RESP 15
[2017-06-18] MEDS: Levothyroxine 125 MCG Tablet PO (04:47)
[2017-06-18] MEDS: levETIRAcetam 1,000 MG Tablet 1000 MG PO ×2 (04:47→17:25)
[2017-06-18] MEDS: Menthol/Lanolin/Calamine/Znox 113 GM Tube 1 APPLIC TOPICAL ×2 (04:47→19:57)
[2017-06-18] MEDS: Enoxaparin 40 MG/0.4 ML Syringe SC (04:48)
[2017-06-18] MEDS: Multivitamins,Therapeutic Tablet 1 TABLET PO (09:58)
[2017-06-18 10:00] VITALS: PULSE 86; RESP 18; O2SAT 98
--- NOTE | 2017-06-18 14:14 | NURSING ---
Pt c/0 feeling dizzy. Pt very wobbly when being transferred. Vitals T-97.7 P-83 R-18 SP02 93% BP 144/72. Pt not in any pain at this time just states that she isn't feeling well. Deanna SMART aware will continue to monitor Pt. Pt will be a 2 assist per nursing measure until her weakness resides.
[2017-06-19] MEDS: Menthol/Lanolin/Calamine/Znox 113 GM Tube 1 APPLIC TOPICAL ×2 (04:25→19:32)
[2017-06-19] MEDS: Levothyroxine 125 MCG Tablet PO (04:26)
[2017-06-19] MEDS: levETIRAcetam 1,000 MG Tablet 1000 MG PO ×2 (04:26→19:05)
[2017-06-19] MEDS: Enoxaparin 40 MG/0.4 ML Syringe SC (05:19)
[2017-06-19] MEDS: Multivitamins,Therapeutic Tablet 1 TABLET PO (07:34)
--- NOTE | 2017-06-19 19:05 | NURSING ---
RETURNED FROM [facility] WITH FAMILY VIA WHEEL CHAIR. ASSISTED TO RECLINER. NOW WATCHING TV, IN [employer]. ASSESSMENT COMPLETED. NO NEEDS AT THIS TIME, WILL CONT TO MONITOR.
[2017-06-19 19:28] VITALS: BP 135/77; PULSE 79; RESP 16; TEMP 36.5; O2SAT 97
[2017-06-19 19:30] VITALS: PULSE 78; RESP 16; O2SAT 97
[2017-06-20] MEDS: Menthol/Lanolin/Calamine/Znox 113 GM Tube 1 APPLIC TOPICAL ×2 (05:32→21:46)
[2017-06-20] MEDS: levETIRAcetam 1,000 MG Tablet 1000 MG PO ×2 (05:33→17:01)
[2017-06-20] MEDS: Levothyroxine 125 MCG Tablet PO (05:33)
[2017-06-20] MEDS: Enoxaparin 40 MG/0.4 ML Syringe SC (05:33)
[2017-06-20] MEDS: Multivitamins,Therapeutic Tablet 1 TABLET PO (08:38)
[2017-06-20 15:35] VITALS: BP 122/66; PULSE 82; RESP 16; TEMP 36.8; O2SAT 98
[2017-06-21] MEDS: Levothyroxine 125 MCG Tablet PO (06:11)
[2017-06-21] MEDS: Menthol/Lanolin/Calamine/Znox 113 GM Tube 1 APPLIC TOPICAL ×2 (06:11→19:41)
[2017-06-21] MEDS: Enoxaparin 40 MG/0.4 ML Syringe SC (06:11)
[2017-06-21] MEDS: levETIRAcetam 1,000 MG Tablet 1000 MG PO ×2 (06:11→17:36)
[2017-06-21] MEDS: Multivitamins,Therapeutic Tablet 1 TABLET PO (07:45)
[2017-06-21 10:00] VITALS: PULSE 95; RESP 18; O2SAT 98
--- NOTE | 2017-06-21 15:16 | CASEMGMT ---
Brief interview for mental status (BIMS) and resident mood interview (PHQ-9) completed on this day. BIMS score 15. PHQ-9 score 08/05
--- NOTE | 2017-06-21 15:19 | CASEMGMT ---
Social Work Spoke with resident and resident spouse. This social media strategist communicating that discharge date has been set for 06/26/17. Resident and resident spouse are agreeable to discharge date and plans for resident to discharge home with spouse. This social media strategist communicating that current recommendation would be for resident to have continued therapy services for both physical, occupational and speech therapy within the home. Resident and resident spouse are agreeable to recommendation. Support given. Will continue to follow. Proposed discharge date: 06/26/17 PLAN: Discharge home with spouse. Katie MADRIGAL, FLAG DECORATOR
[2017-06-21 15:32] VITALS: BP 116/62; PULSE 82; RESP 18; TEMP 36.4; O2SAT 93
--- NOTE | 2017-06-21 16:56 | PCM.DC ---
- Discharge Diagnoses Current Active Problems: Current Active and Chronic Problems Fever (Acute) Neutropenia (Acute) DVT (deep venous thrombosis) (Chronic) Left hemiplegia (Chronic) You will use the following diet at home:: No restrictions, Regular Your food should be the consistency of: Regular Your liquids should be the consistency of: Regular/Thin Discharge Activity: Return to Normal Activity, Use Walker May resume sexual activity in: No Restrictions Weight Bearing Status: Weight bearing as tolerated Call your doctor if you observe: Fever of 101 or Higher, Inability to urinate, Inability to have a bowel movement, Shortness of breath, Chest pain, Uncontrolled pain Allergies/Adverse Reactions: Allergies adhesive tape Allergy (Verified 06/02/17 20:37) Hives celecoxib [From Celebrex] Allergy (Verified 08/25/16 19:11) Unknown etodolac [From Lodine] Allergy (Verified 08/25/16 19:12) Unknown vancomycin Allergy (Verified 06/02/17 20:37) Rash Medications to take at Discharge Multivitamin [Daily Multiple Vitamin] 1 each PO DAILY@0800 11/25/16 Acetaminophen [Tylenol Tablet] 1,000 mg PO Q8H PRN PRN 06/02/17 Levothyroxine [Synthroid] 125 mcg PO DAILY@0600 06/02/17 Dexamethasone 1 mg PO DAILY #3 06/21/17 Levetiracetam [Keppra] 1,000 mg PO BID #60 tab 06/21/17 Polyethylene Glycol 3350 [Miralax] 17 gm PO DAILY #30 packet 06/21/17 The following prescriptions were given: Polyethylene Glycol 3350 [Miralax] 17 gm PO DAILY #30 packet Levetiracetam [Keppra] 1,000 mg PO BID #60 tab Primary Care Physician: Derek Roldan [Primary Care Provider] - Please follow up with your Primary Care Physician in: 1 week. Proposed Discharge Date: 06/26/17
--- NOTE | 2017-06-21 16:58 | PCM.DC.SUM ---
Discharge Date and Diagnosis - Problem List Patient Problems: Active and Suspected Problems Fever (Acute) Neutropenia (Acute) Date of Admission: 06/02/17 Date of Discharge: 06/26/17 - Primary Discharge Diagnosis Active and Suspected Problems Fever (Acute) Neutropenia (Acute) - Secondary Discharge Diagnosis Chronic Problems DVT (deep venous thrombosis) (Chronic) Left hemiplegia (Chronic) Hypothyroidism (Chronic) Glioblastoma multiforme (Chronic) Nausea (Chronic) Neuropathic pain (Chronic) GERD (gastroesophageal reflux disease) (Chronic) Hypothyroidism associated with surgical procedure (Chronic) Hospital Course and Treatment Imaging Results: 06/06/17 13:04 Diet: Regular Diet Food consistency:: Regular Liquid Consistency:: Regular/Thin Is pt able to select menu?: Yes Diet Comments: NO STRAWS, send cup for mighty shake Operations: None Procedures: None Summary of Care Provided: The patient is a 67 year old Female with below past medical history significant for glioblastoma multiforme status post resection, hospitalized for fever, neutropenia, admitted to TCU with debility, here for rehabilitation, strengthening, prior to discharge home with spouse. [] Discharge home with spouse, and Home health services. Home health ordered. Discharge Diet: No Restrictions Discharge Activity: Return to Normal Activity, Use Walker May resume sexual activity in: No Restrictions Weight Bearing Status: Weight bearing as tolerated Call your doctor if you observe: Fever of 101 or Higher, Inability to urinate, Inability to have a bowel movement, Shortness of breath, Chest pain, Uncontrolled pain Home Medications: Medications to take at Discharge Multivitamin [Daily Multiple Vitamin] 1 each PO DAILY@0800 11/25/16 Acetaminophen [Tylenol Tablet] 1,000 mg PO Q8H PRN PRN 06/02/17 Levothyroxine [Synthroid] 125 mcg PO DAILY@0600 06/02/17 Dexamethasone 1 mg PO DAILY #3 06/21/17 Levetiracetam [Keppra] 1,000 mg PO BID #60 tab 06/21/17 Polyethylene Glycol 3350 [Miralax] 17 gm PO DAILY #30 packet 06/21/17 Following Prescrptions Were Given to Patient: Polyethylene Glycol 3350 [Miralax] 17 gm PO DAILY #30 packet Levetiracetam [Keppra] 1,000 mg PO BID #60 tab Primary Care Physician: Derek Roldan [Primary Care Provider] - Please follow up with your Primary Care Physician in: 1 week. Disposition: Home with Home Health Minutes spent on discharge:: 35 Patient Condition:: Stable Meaningful Use Info Meaningful Use Diagnoses (Choose all that apply): None applicable
--- NOTE | 2017-06-21 16:59 | HHNOTE_ITS ---
Home Health Note - Plan Overview of reason of hospitalization: The patient is a 67 year old Female with below past medical history significant for glioblastoma multiforme status post resection, hospitalized for fever, neutropenia, admitted to TCU with debility, here for rehabilitation, strengthening, prior to discharge home with spouse. [] Discharge home with spouse, and Home health services. Home health ordered. Problems: Patient was seen for Fever (Acute) Neutropenia (Acute) DVT (deep venous thrombosis) (Chronic) Left hemiplegia (Chronic) Complete List of Medical Problems Fever (Acute) Neutropenia (Acute) DVT (deep venous thrombosis) (Chronic) Left hemiplegia (Chronic) Hypothyroidism (Chronic) Thrush (Acute) Glioblastoma multiforme (Chronic) Leukopenia (Acute) Diarrhea (Acute) Brain abscess (Acute) Nausea (Chronic) Neuropathic pain (Chronic) GERD (gastroesophageal reflux disease) (Chronic) Hypothyroidism associated with surgical procedure (Chronic) Debility (Acute) Brain tumor (Acute) - Requirements and Reasons Disciplines Needed/Ordered: Snf, Physical Therapy, Speech Therapy Reason for Disciplines: Gait Training, Stair Training, Fall Prevention, Home Safety/Equipment Instruction, Balance and/or Posture Training, Transfer Training , Swallowing Exercise/Education Related To: Limited/Poor Endurance, Shortness of Breath with Activity, Physical Impairments, Unsteady Gait/Balance, Fall Risk Patient is unable to leave the home: Without Aid of Supportive Devices (crutches , cane, wheelchair, walker), Without the assistance of another person - Additional Disciplines Additional Disciplines Needed/Ordered: Occupational Therapy
[2017-06-22] MEDS: Menthol/Lanolin/Calamine/Znox 113 GM Tube 1 APPLIC TOPICAL ×2 (04:27→19:44)
[2017-06-22] MEDS: levETIRAcetam 1,000 MG Tablet 1000 MG PO ×2 (04:28→16:40)
[2017-06-22] MEDS: Levothyroxine 125 MCG Tablet PO (04:28)
[2017-06-22] MEDS: Enoxaparin 40 MG/0.4 ML Syringe SC (04:29)
[2017-06-22] MEDS: Multivitamins,Therapeutic Tablet 1 TABLET PO (07:54)
[2017-06-22 09:35] VITALS: PULSE 88; RESP 16; O2SAT 98
--- NOTE | 2017-06-22 15:02 | CASEMGMT ---
Social Work Spoke with resident and resident spouse in room. Resident requesting for home health services to be set up through [facility]. Resident spouse plans to provide transportation for resident at time of discharge. Resident reporting to have all needed durable medical equipment already set up within the home. Support given. Telephone call to [facility], Krystle. This marriage and family social worker making referral for physical, occupational, and speech therapy. Orders and clinical information faxed. Krystle to contact this marriage and family social worker back to confirm if [facility] will be able to accept resident. Proposed discharge date: 06/26/17 PLAN: Discharge home with spouse and home health services. Katie MADRIGAL, MANAGER OF MANUFACTURING
[2017-06-22 15:30] VITALS: BP 131/69; PULSE 80; RESP 16; TEMP 36.4; O2SAT 94
[2017-06-23] MEDS: Enoxaparin 40 MG/0.4 ML Syringe SC (06:21)
[2017-06-23] MEDS: Menthol/Lanolin/Calamine/Znox 113 GM Tube 1 APPLIC TOPICAL ×2 (06:21→21:19)
[2017-06-23] MEDS: levETIRAcetam 1,000 MG Tablet 1000 MG PO ×2 (06:21→17:02)
[2017-06-23] MEDS: Levothyroxine 125 MCG Tablet PO (06:21)
[2017-06-23] MEDS: Multivitamins,Therapeutic Tablet 1 TABLET PO (07:52)
[2017-06-23 10:00] VITALS: PULSE 97; RESP 18; O2SAT 98
--- NOTE | 2017-06-23 10:13 | CASEMGMT ---
Social Work Telephone call from [facility], [facility]. [facility] able to accept resident for home health services. Proposed discharge date: 06/26/17 PLAN: Discharge home with spouse and home health services. Katie MADRIGAL, LONG TERM CARE PHARMACIST
[2017-06-23 15:51] VITALS: BP 111/63; PULSE 93; RESP 16; TEMP 36.3; O2SAT 96
[2017-06-24] MEDS: Menthol/Lanolin/Calamine/Znox 113 GM Tube 1 APPLIC TOPICAL ×2 (05:18→17:39)
[2017-06-24] MEDS: Enoxaparin 40 MG/0.4 ML Syringe SC (05:18)
[2017-06-24] MEDS: levETIRAcetam 1,000 MG Tablet 1000 MG PO ×2 (05:19→17:32)
[2017-06-24] MEDS: Levothyroxine 125 MCG Tablet PO (05:19)
[2017-06-24 06:28] LABS: Absolute Lymphocyte Count 1.43 X10^3/ul (0.83-4.51); Basophil# 0.01 X10^3/uL; Basophil% 0.2 % (0-1); Eosinophil# 0.09 X10^3/uL; Eosinophils% 2.1 % (0-5); Hematocrit 37.4 % (37-47); Hemoglobin 11.8 g/dl (12.0-15.0); Lymphocyte # 1.43 X10^3/ul (4.0); Lymphocyte % 32.9 % (19-41); Mean Corp Hgb Conc 31.6 g/gl (32-36); Mean Corpuscular Hgb 31.5 pg (27.0-32.0); Mean Corpuscular Volume 99.7 fL (81-99); Mean Platelet Vol. 9.9 fl (6.2-12.0); Monocyte# 0.79 X10^3/uL; Monocyte% 18.2 % (0-10); Neutrophil % 45.9 % (47-70); Platelet Count 209 K/mm3 (150-450); RBC Distribution Width CV 22.4 % (11.6-14.6); RBC Distribution Width SD 80.6 fl (35.1-43.9); Red Blood Count 3.75 M/mm3 (4.2-5.4); White Blood Count 4.4 K/mm3 (4.4-11.0)
[2017-06-24 06:29] LABS: Differential Indicated SCAN CRITERIA MET; POSITIVE COUNT NO; POSITIVE DIFFERENTIAL NO; POSITIVE MORPHOLOGY YES
[2017-06-24 06:54] LABS: Anion Gap 6 (5-15); BUN 32 mg/dL (7-18); BUN/Creat Ratio 42.7 RATIO (10-20); Calcium,Total 9.2 mg/dL (8.5-10.1); Chloride 107 mmol/L (98-107); Creatinine, Serum 0.75 mg/dL (0.55-1.02); EST Glomerular Filtration Rate 81 mL/min (>60); Est Glom Filt Rate - Afr Amer 99 mL/min (>60); Estimated Creatinine Clearance 53.56 ml/min; Glucose 82 mg/dL (74-106); Potassium 3.9 mmol/L (3.5-5.1); Sodium Level 142 mmol/L (136-145)
[2017-06-24] MEDS: Multivitamins,Therapeutic Tablet 1 TABLET PO (08:05)
[2017-06-24 10:00] VITALS: PULSE 88; RESP 18; O2SAT 95
--- NOTE | 2017-06-24 13:36 | MDS.RN ---
Pain interview for JIGNESH 06/26/17 completed today.
[2017-06-24 15:33] VITALS: BP 104/64; PULSE 72; RESP 18; TEMP 36.7; O2SAT 95
[2017-06-25] MEDS: Menthol/Lanolin/Calamine/Znox 113 GM Tube 1 APPLIC TOPICAL ×2 (05:12→20:24)
[2017-06-25] MEDS: Enoxaparin 40 MG/0.4 ML Syringe SC (05:12)
[2017-06-25] MEDS: Levothyroxine 125 MCG Tablet PO (05:14)
[2017-06-25] MEDS: levETIRAcetam 1,000 MG Tablet 1000 MG PO ×2 (05:14→17:01)
[2017-06-25 06:37] VITALS: PULSE 72; RESP 18; O2SAT 98
[2017-06-25] MEDS: Multivitamins,Therapeutic Tablet 1 TABLET PO (07:45)
[2017-06-25 16:00] VITALS: BP 104/66; PULSE 87; RESP 17; TEMP 36.4; O2SAT 96
[2017-06-26] MEDS: Levothyroxine 125 MCG Tablet PO (05:46)
[2017-06-26] MEDS: levETIRAcetam 1,000 MG Tablet 1000 MG PO (05:46)
[2017-06-26] MEDS: Enoxaparin 40 MG/0.4 ML Syringe SC (05:47)
[2017-06-26] MEDS: Menthol/Lanolin/Calamine/Znox 113 GM Tube 1 APPLIC TOPICAL (05:47)
[2017-06-26] MEDS: Multivitamins,Therapeutic Tablet 1 TABLET PO (08:34)
[2017-06-26 08:58] VITALS: PULSE 87; RESP 18; O2SAT 97
[2017-06-26 09:42] VITALS: BP 123/69; PULSE 86; RESP 18; TEMP 36.8; O2SAT 97
--- NOTE | 2017-06-30 13:01 | MDS.RN ---
Information for the mds was obtained from review of the clinical record, interview of resident, staff, and direct observation of resident's care.
== END 2017-06-26 11:25 | disposition home health service (06) | DRG 948 ==
PROVIDERS: Admitting Provider Family Medicine Geriatric Medicine; Family Provider Family Medicine; PCP Family Medicine; Visit Provider Family Medicine Geriatric Medicine
DX: R53.81 Other malaise (principal); C71.9 Malignant neoplasm of brain, unspecified; D70.9 Neutropenia, unspecified; G81.94 Hemiplegia, unspecified affecting left nondominant side; E03.9 Hypothyroidism, unspecified; G40.909 Epilepsy, unspecified, not intractable, without status epilepticus; K21.9 Gastro-esophageal reflux disease without esophagitis; Z85.850 Personal history of malignant neoplasm of thyroid; Z79.899 Other long term (current) drug therapy; Z86.718 Personal history of other venous thrombosis and embolism
CPT/HCPCS: 36415; 80048; 85025; 92507; 92523; 92526; 92610; 97110; 97112; 97116; 97162; 97166; 97530; 97535; 97802